=== PATIENT | female | born 1945 | race Caucasian/White ===

== ENCOUNTER 2019-01-23 12:14 | Emergency (ER) | payer OTHER ==
[~2019-01-23] VITALS: Ht 157.5 cm; Wt 62.6 kg
[2019-01-23] MEDS ORDERED: PRILOSEC OTC20 MG (12:59)
[2019-01-23] MEDS ORDERED: SYNTHROID125 MCG (12:59)
== END 2019-01-23 14:30 | disposition home or self-care (01) ==
LOC: ER 12:14
DX: S01.02XA Laceration with foreign body of scalp, initial encounter (principal); W18.09XA Striking against other object with subsequent fall, initial encounter; Y93.89 Activity, other specified; Y92.89 Other specified places as the place of occurrence of the external cause; Y99.8 Other external cause status

== ENCOUNTER 2019-02-04 10:42 | Emergency (ER) | payer OTHER ==
[~2019-02-04] VITALS: Ht 157.5 cm; Wt 62.1 kg
[~2019-02-04 10:42] MED LIST: PRILOSEC OTC20 MG; SYNTHROID125 MCG
== END 2019-02-04 11:50 | disposition home or self-care (01) ==
LOC: ER 10:42
DX: Z48.02 Encounter for removal of sutures (principal)